=== PATIENT | female | born 1935 | race Caucasian/White ===

== ENCOUNTER 2016-05-14 09:45 | Outpatient (RCR) | payer MEDICARE, OTHER ==
[~2016-05-14 09:45] MED LIST: ASP81TEC PO; DIPH1TAB45 PO; HYOS0.1217 PO; METO25TA PO; ONDAN4ODT PO; PNT40TEC PO; SIMV80TA3 PO; SULF1TAB38 PO; [UNRECOGNIZED DRUG - OTHER]
--- OUTSIDE RECORDS SUMMARY | 2016-05-14 09:48 | XMS REPORT | Continuity of Care Document ---
Author Author [facility] Organization [facility] Address Unknown Phone Unavailable Care Team Providers Care [employer] Tr[employer] Wrapper Name Role Phone Ashlee Rajput PCP [phone] Source Comments Some departments are not documenting in the electronic medical record. If you do not see the information that you expected, contact Release of Information in the Health Information Management department at [phone] for further assistance in locating additional records.[facility] Active Allergies and Adverse Reactions Not on File Current Medications Not on file Active Problems Not on file Social History Tobacco Use Types Packs/Day Years Used Date Never Assessed Plan of Care Health Maintenance Due Date Last Done Comments Physical (Comprehensive) 1944 Exam Pertussis Vaccine 1948 Tetanus Vaccine 1954 Breast Cancer Screening 1977 Shingles Vaccine 1997 Osteoporosis Screening 2002 Prevnar/Pneumovax (#1) 2002 Influenza Vaccine 11/20/2014 Results from Last 3 Months Not on file
== END 2016-08-12 | disposition home or self-care (01) ==
LOC: CARD 09:45
PROVIDERS: ATTEND Nurse Practitioner Family
DX: I10 Essential (primary) hypertension (principal); R07.9 Chest pain, unspecified; I25.10 Atherosclerotic heart disease of native coronary artery without angina pectoris
CPT/HCPCS: 93225; 93226

== ENCOUNTER → 2016-07-31 | Outpatient (CLI) | payer MEDICARE, OTHER ==
--- NOTE | 2016-07-31 11:22 | Diagnostic Imaging Report ---
INDICATION: Left anterior rib pain. FINDINGS: Three views of the left ribs do not show any displaced fractures. The lungs are clear. There are no effusions or pneumothoraces. IMPRESSION: Negative left ribs. Dictated by: Dictated on workstation # [id number]
== END ==
LOC: RAD 10:42
PROVIDERS: ATTEND Nurse Practitioner Family
DX: R07.81 Pleurodynia (principal); W19.XXXA Unspecified fall, initial encounter; Y99.8 Other external cause status
CPT/HCPCS: 71100

== ENCOUNTER 2016-08-10 13:37 | Outpatient (RCR) | payer MEDICARE, OTHER | END 2016-08-10 15:10 | disposition home or self-care (01) | LOC: CR 13:37 | PROVIDERS: ATTEND Internal Medicine Interventional Cardiology | DX: Z48.812 Encounter for surgical aftercare following surgery on the circulatory system (principal); Z95.5 Presence of coronary angioplasty implant and graft | CPT/HCPCS: 93798 ==

== ENCOUNTER 2016-10-20 12:08 | Outpatient (RCR) | payer MEDICARE, OTHER ==
[2016-10-02] MEDS: ACETAMINOPHEN 325 MG TABLET/CAPLET (TYLENOL) PO SCH (12:36)
[2016-10-02] MEDS: diphenhydrAMINE 50 MG/ML INJ (BENADRYL) IVP SCH (12:36)
[2016-10-02 12:40] LABS: MEAN PLATELET VOLUME 9.8 FL (7.4-10.4); RED BLOOD COUNT 3.4 10^6/uL (4.35-5.85); RED CELL DISTRIBUTION WIDTH 16.6 % (10.0-14.5); WHITE BLOOD COUNT 4.2 10^3/uL (4.3-11.0)
[2016-10-02 14:20] VITALS: BP 138/75
[2016-10-06 12:30] VITALS: BP 135/47
[2016-10-06] MEDS: diphenhydrAMINE 50 MG/ML INJ (BENADRYL) IVP SCH (12:51)
[2016-10-06] MEDS: ACETAMINOPHEN 325 MG TABLET/CAPLET (TYLENOL) PO SCH (12:52)
[2016-10-06] MEDS: IRON SUCROSE 250 MG/NS 100 ML IVPB IV SCH ×2 (12:58)
[2016-10-09] MEDS: diphenhydrAMINE 50 MG/ML INJ (BENADRYL) IVP SCH (12:24)
[2016-10-09] MEDS: ACETAMINOPHEN 325 MG TABLET/CAPLET (TYLENOL) PO SCH (12:24)
[2016-10-09] MEDS: IRON SUCROSE 250 MG/NS 100 ML IVPB IV SCH ×2 (12:38)
[2016-10-09 13:03] VITALS: BP 125/51
[2016-10-13] MEDS: ACETAMINOPHEN 325 MG TABLET/CAPLET (TYLENOL) PO SCH (12:25)
[2016-10-13] MEDS: diphenhydrAMINE 50 MG/ML INJ (BENADRYL) IVP SCH (12:30)
[2016-10-13] MEDS: IRON SUCROSE 250 MG/NS 100 ML IVPB IV SCH ×2 (12:47)
[2016-10-13 14:41] VITALS: BP 132/65
[2016-10-16] MEDS: ACETAMINOPHEN 325 MG TABLET/CAPLET (TYLENOL) PO SCH (12:20)
[2016-10-16] MEDS: diphenhydrAMINE 50 MG/ML INJ (BENADRYL) IVP SCH (12:25)
[2016-10-16] MEDS: IRON SUCROSE 250 MG/NS 100 ML IVPB IV SCH ×2 (12:40)
[2016-10-16 13:10] VITALS: BP 154/77
[~2016-10-20] VITALS: Ht 165.1 cm; Wt 83.5 kg
[~2016-10-20 12:08] MED LIST changes: +CHOL200014 PO; +FERR325T24 PO; +IRON SUCROSE 200 MG/10 ML (VENOFER) VIAL IV ONE; +IRON SUCROSE IV ONE; +MULT-1029 PO; +NS IV ONE; +TIOT18CA2 IH
[2016-10-20] MEDS: ACETAMINOPHEN 325 MG TABLET/CAPLET (TYLENOL) PO SCH (12:36)
[2016-10-20] MEDS: diphenhydrAMINE 50 MG/ML INJ (BENADRYL) IVP SCH (12:40)
[2016-10-20] MEDS ORDERED: NS IV SCH (12:45)
[2016-10-20] MEDS ORDERED: diphenhydrAMINE 50 MG/ML INJ (BENADRYL) IVP ONE (12:45)
[2016-10-20] MEDS ORDERED: IRON SUCROSE IV SCH (12:45)
[2016-10-20 12:49] VITALS: BP 134/67
[2016-10-20 13:19] VITALS: BP 134/67
== END 2016-12-19 | disposition home or self-care (01) ==
LOC: SDC 12:08
PROVIDERS: ATTEND Family Medicine
DX: D50.9 Iron deficiency anemia, unspecified (principal)
CPT/HCPCS: 36415; 85027; 96365; 96374; 96375

== ENCOUNTER → 2017-05-10 | Outpatient (CLI) | payer MEDICARE, OTHER ==
[~2017-05-10] MED LIST changes: -IRON SUCROSE 200 MG/10 ML (VENOFER) VIAL IV ONE; -IRON SUCROSE IV ONE; -NS IV ONE
--- NOTE | 2017-05-10 11:56 | Diagnostic Imaging Report ---
PROCEDURE: MRI left upper extremity without contrast. TECHNIQUE: Multiplanar, multisequence MR imaging of the left shoulder was performed without contrast. COMPARISON: None available. INDICATION: Left shoulder pain. Chronic injury to the left shoulder. FINDINGS: Rotator cuff: Moderate tendinopathy of supraspinatus which has low-grade partial-thickness bursal sided fraying present. However, there is no high-grade partial or full thickness rotator cuff tear. Mild infraspinatus tendinopathy is also present. Subscapularis and teres minor are normal. Glenoid labrum: By non-arthrogram imaging, the glenoid labrum appears intact. No para-labral cyst. Long head of biceps: Long head of biceps is normally positioned within the bicipital groove. The intracapsular segment is intact. Bones and cartilage: Humeral head is normal in morphology without fracture. 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 No glenohumeral chondromalacia. Mild hypertrophic degenerative changes of the acromioclavicular joint. Soft tissues: No glenohumeral joint effusion. No MRI findings to suggest adhesive capsulitis. Fluid in the subacromial and subdeltoid space is indicative of bursitis or recent injection. IMPRESSION: 1. Moderate supraspinatus tendinopathy with superimposed low-grade bursal sided fraying/tearing. 2. Long head of biceps is normal. 3. Mild subacromial and subdeltoid bursitis. Dictated by: Dictated on workstation # [id number]
== END ==
LOC: RAD 09:38
PROVIDERS: ATTEND Nurse Practitioner Family
DX: S49.92XA Unspecified injury of left shoulder and upper arm, initial encounter (principal); M67.814 Other specified disorders of tendon, left shoulder; M75.52 Bursitis of left shoulder
CPT/HCPCS: 73221

== ENCOUNTER 2017-08-05 09:56 | Outpatient (RCR) | payer MEDICARE, OTHER ==
[2017-07-30 12:38] VITALS: BP 131/68
[2017-07-30] MEDS: ACETAMINOPHEN 325 MG TABLET PO SCH (12:40)
[2017-07-30] MEDS: diphenhydrAMINE 50 MG/ML INJ (BENADRYL) IV SCH (12:45)
[2017-07-30] MEDS: IRON SUCROSE 200 MG/10 ML (VENOFER) VIAL IV SCH (13:04)
[2017-07-30 13:30] VITALS: BP 131/68
[2017-08-02] MEDS: ACETAMINOPHEN 325 MG TABLET PO SCH (10:14)
[2017-08-02] MEDS: IRON SUCROSE 200 MG/10 ML (VENOFER) VIAL IV SCH (10:23)
[2017-08-02] MEDS: diphenhydrAMINE 50 MG/ML INJ (BENADRYL) IV SCH (10:23)
[2017-08-02 10:55] VITALS: BP 126/59
[~2017-08-05] VITALS: Ht 165.1 cm; Wt 83.5 kg
[~2017-08-05 09:56] MED LIST changes: +ACETAMINOPHEN 325 MG TABLET ONE; +diphenhydrAMINE 25 MG TAB (BENADRYL) PO ONE; +diphenhydrAMINE 50 MG/ML INJ (BENADRYL) ONE
[2017-08-05] MEDS: ACETAMINOPHEN 325 MG TABLET PO SCH (10:11)
[2017-08-05] MEDS: IRON SUCROSE 200 MG/10 ML (VENOFER) VIAL IV SCH (10:11)
[2017-08-05 10:35] VITALS: BP 148/70
[2017-08-05] MEDS ORDERED: diphenhydrAMINE 25 MG TAB (BENADRYL) PO ONE (10:45)
== END 2017-10-28 | disposition home or self-care (01) ==
LOC: SDC 09:56
PROVIDERS: ATTEND Family Medicine
DX: D50.9 Iron deficiency anemia, unspecified (principal)
CPT/HCPCS: 96365; 96375

== ENCOUNTER → 2017-11-04 | Outpatient (CLI) | payer MEDICARE, OTHER ==
[~2017-11-04] MED LIST changes: -ACETAMINOPHEN 325 MG TABLET ONE; -diphenhydrAMINE 25 MG TAB (BENADRYL) PO ONE; -diphenhydrAMINE 50 MG/ML INJ (BENADRYL) ONE
== END ==
LOC: LAB 09:21
PROVIDERS: ATTEND Family Medicine
DX: D69.9 Hemorrhagic condition, unspecified (principal)
CPT/HCPCS: 36415; 85576

== ENCOUNTER → 2017-12-16 | Outpatient (CLI) | payer MEDICARE, OTHER ==
[~2017-12-16] MED LIST changes: -CHOL200014 PO; +CHOL200085 PO
--- NOTE | 2017-12-16 12:13 | Diagnostic Imaging Report ---
DEXA scan. Indication: Screening for osteoporosis. The study was compared to the prior exam of 05/31/2014. The bone mineral density of the hips and spine was measured. The T score for the spine is -1.8. This value is unchanged when compared to the prior study. The T score for the left hip is -1.8 and for the right hip -2.1. On the prior exam the respective T. scores were -1.5 and -1.7. Impression: The bone mineral density of the hips has decreased since the prior exam. The T score for the spine is unchanged however. All of the T score values indicate osteopenia. Dictated by: Dictated on workstation # [id number]
== END ==
LOC: RAD 09:42
PROVIDERS: ATTEND Family Medicine
DX: Z13.820 Encounter for screening for osteoporosis (principal); M85.89 Other specified disorders of bone density and structure, multiple sites
CPT/HCPCS: 77080